=== PATIENT | female | born 1995 | race Two or more races ===

== ENCOUNTER 2021-03-30 21:00 | Emergency (ER) | payer MEDICAID ==
[~2021-03-30] VITALS: Ht 165.1 cm; Wt 63.0 kg
[2021-03-30 23:46] VITALS: BP 111/73
== END 2021-03-31 04:50 | disposition home or self-care (01) ==
LOC: ER 21:00
DX: H61.22 Impacted cerumen, left ear (principal); J45.909 Unspecified asthma, uncomplicated
CPT/HCPCS: 69209